=== PATIENT | male | born 1955 | race Caucasian/White ===

== ENCOUNTER 2018-05-10 10:41 | Emergency (ER) | payer OTHER, SELFPAY ==
[2018-05-10 10:46] VITALS: BP 144/107; PULSE 83; RESP 14; TEMP 36.2; O2SAT 95; BMI 38.4
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
== END 2018-05-10 13:35 | disposition home or self-care (01) ==
PROVIDERS: Emergency Provider Emergency Medicine
DX: S16.1XXA Strain of muscle, fascia and tendon at neck level, initial encounter (principal); S39.012A Strain of muscle, fascia and tendon of lower back, initial encounter; V43.52XA Car driver injured in collision with other type car in traffic accident, initial encounter
CPT/HCPCS: 72100; 72125; 99283; 99284

== ENCOUNTER → 2018-09-10 09:42 | Outpatient (CLI) | payer OTHER, SELFPAY ==
--- NOTE | 2018-09-10 | DI.RAD.S_ITS ---
This blank DEXA report has been sent in error by the PACS system. The correct and complete report will be forthcoming in 1-2 days. Thank you for your patience and understanding. Dictated by: Jose Canela M.D. on 09/10/2018 at 12:17 Approved by: Jose Canela M.D. on 09/10/2018 at 12:17
== END ==
PROVIDERS: Visit Provider Internal Medicine
DX: M85.80 Other specified disorders of bone density and structure, unspecified site (principal); E11.9 Type 2 diabetes mellitus without complications; Z79.899 Other long term (current) drug therapy; Z87.891 Personal history of nicotine dependence
CPT/HCPCS: 77080

== ENCOUNTER 2019-01-20 11:35 | Emergency (ER) | payer OTHER, SELFPAY ==
[2019-01-20 11:35] VITALS: BP 131/103; PULSE 86; RESP 19; TEMP 36.8; O2SAT 96; BMI 36.9
--- NOTE | 2019-01-20 11:52 | ED_ITS ---
HPI - Back Pain/Injury <GRECIA Mcmanus - Last Filed: 01/20/19 19:37> General Chief Complaint: Back Pain/Injury Stated Complaint: Flank Pain Time Seen by Provider: 01/20/19 11:35 Source: patient Mode of arrival: ambulatory Limitations: no limitations History of Present Illness HPI Narrative: The patient is a 63-year-old male current marijuana smoker with history of complex regional pain syndrome who presents with a chief complaint of sudden onset of left flank pain. He states the pain was so bad he got nauseous and sweaty. He denies any previous history of kidney stones. He denies any fever, chest pain shortness of breath or abdominal pain. States the pain is nonradiating in his left flank. He denies any previous dysuria urgency or frequency. He states he last urinated approximately an hour and half prior to calling EMS. He has not taken anything for the pain and did not receive anything EN route. Related Data Home Medications Medication Instructions Recorded Confirmed tamsulosin [Flomax] 0.4 mg PO QPM #0 02/07/12 01/20/19 omeprazole 10 mg PO DAILY 05/10/18 01/20/19 Stool Softener 1 cap PO QPM 01/20/19 01/20/19 Vitamin C 1 tab PO DAILY 01/20/19 01/20/19 Vitamin D3 1 cap PO DAILY 01/20/19 01/20/19 krill oil 1 cap PO DAILY 01/20/19 01/20/19 Previous Rx's Medication Instructions Recorded hydrocodone-acetaminophen [[place]] 1 tab PO Q4-6H PRN #10 tab 01/20/19 ketorolac 10 mg PO TID PRN #20 tab 01/20/19 ondansetron 4 mg PO Q6H PRN #20 tab 01/20/19 tamsulosin [Flomax] 0.4 mg PO DAILY #7 cap 01/20/19 Allergies Allergy/AdvReac Type Severity Reaction Status Date / Time gabapentin [GABAPENTIN] Allergy Unknown Verified 05/10/18 10:50 pregabalin [From LYRICA] Allergy Unknown Verified 05/10/18 10:50 tramadol [TRAMADOL] Allergy Unknown Verified 05/10/18 10:50 Review of Systems <GRECIA Mcmanus - Last Filed: 01/20/19 19:37> Review of Systems GENERAL: Denies chills, fatigue, malaise, fever, sweats. HEENT: Denies sinus pain, ear pain, sore throat, difficulty swallowing, dizziness. RESPIRATORY: Denies dyspnea, cough, wheezing, hemoptysis, sputum. CARDIOVASCULAR: Denies chest pain, palpitations, orthopnea, edema, GASTROINTESTINAL: Denies nausea, vomiting, abdominal pain, diarrhea, constipation, melena. : See HPI MUSCULOSKELETAL: denies weakness, joint pain, or bony pain SKIN: Denies rash, skin lesions, or other NEUROLOGIC: Denies weakness, headache, numbness, change in speech, confusion, se izures, incoordination. PSYCHIATRIC: No concerning psychosocial issues. 12 point review of systems is negative except for those stated above PFSH <GRECIA Mcmanus - Last Filed: 01/20/19 19:37> Social History Smoking Status: Current every day smoker Exam <GRECIA Mcmanus - Last Filed: 01/20/19 19:37> Narrative Exam Narrative: GENERAL: Obese male, appears uncomfortable HEAD: Atraumatic. Normocephalic. No temporal or scalp tenderness. EYES: Pupils equal round and reactive. Extraocular motions intact. No scleral icterus. No injection or drainage. ENT: Nose without bleeding, purulent drainage or septal hematoma. Throat without erythema, tonsillar hypertrophy or exudate. Uvula midline. Airway patent. NECK: Trachea midline. No JVD or lymphadenopathy. Supple, nontender, no meningeal signs. CARDIOVASCULAR: Regular rate and rhythm RESPIRATORY: Coarse bilaterally to auscultation. Breath sounds equal bilaterally. No wheezes, rales, or rhonchi. GASTROINTESTINAL: Abdomen soft, non-tender, nondistended. No hepato- splenomegaly, or palpable masses. No guarding. Active bowel sounds all 4 quadrants. EXTREMITIES: No clubbing, cyanosis, or edema. No joint tenderness, effusion, or edema noted. BACK: Nontender without deformity or crepitance. CVA tenderness on left side. No CVA tenderness right-sided. NEURO: AOx3. SKIN: No rash or erythema. Initial Vital Signs Initial Vital Signs: Vital Signs Temperature 98.2 F 01/20/19 11:35 Pulse Rate 86 01/20/19 11:35 Respiratory Rate 19 01/20/19 11:35 Blood Pressure 131/103 H 01/20/19 11:35 Pulse Oximetry 96 01/20/19 11:35 <Rich James DO - Last Filed: 01/21/19 07:30> Initial Vital Signs Initial Vital Signs: Vital Signs Temperature 98.2 F 01/20/19 11:35 Pulse Rate 86 01/20/19 11:35 Respiratory Rate 19 01/20/19 11:35 Blood Pressure 131/103 H 01/20/19 11:35 Pulse Oximetry 96 01/20/19 11:35 Course <SHENA Mcmanus-BC - Last Filed: 01/20/19 19:37> Orders Ordered: Discontinued Medications Hydrocodone Bitart/Acetaminophen ([place] 5/325) 2 tab PO NOW ONE Stop: 01/20/19 16:19 Last Admin: 01/20/19 16:28 Dose: 2 tab Hydromorphone HCl (Dilaudid) 0.5 mg IV NOW ONE Stop: 01/20/19 13:22 Last Admin: 01/20/19 13:24 Dose: 0.5 mg Hydromorphone HCl (Dilaudid) 1 mg IV NOW ONE Stop: 01/20/19 13:50 Last Admin: 01/20/19 13:53 Dose: 1 mg Hydromorphone HCl (Dilaudid) 1 mg IV NOW ONE Stop: 01/20/19 15:24 Last Admin: 01/20/19 15:26 Dose: 1 mg Hydromorphone HCl (Dilaudid) 1 mg IV NOW ONE Stop: 01/20/19 16:47 Last Admin: 01/20/19 16:48 Dose: 1 mg Sodium Chloride (Normal Saline 0.9%) 1,000 mls @ 1,000 mls/hr IV BOLUS ONE Stop: 01/20/19 12:36 Last Infusion: 01/20/19 15:00 Dose: 0 mls/hr Admin: 01/20/19 12:05 Dose: 1,000 mls/hr Sodium Chloride (Normal Saline 0.9%) 1,000 mls @ 1,000 mls/hr IV BOLUS ONE Stop: 01/20/19 14:57 Last Infusion: 01/20/19 16:53 Dose: 0 mls/hr Admin: 01/20/19 15:00 Dose: 1,000 mls/hr Ketorolac Tromethamine (Toradol) 30 mg IV NOW ONE Stop: 01/20/19 11:38 Last Admin: 01/20/19 12:05 Dose: 30 mg Morphine Sulfate (Morphine) 4 mg IV NOW ONE Stop: 01/20/19 12:03 Last Admin: 01/20/19 12:09 Dose: 4 mg Morphine Sulfate (Morphine) 4 mg IV NOW ONE Stop: 01/20/19 12:53 Last Admin: 01/20/19 13:05 Dose: 4 mg Ondansetron HCl (Zofran) 4 mg IV NOW ONE Stop: 01/20/19 11:38 Last Admin: 01/20/19 12:05 Dose: 4 mg Ondansetron HCl (Zofran) 4 mg IV NOW ONE Stop: 01/20/19 13:28 Last Admin: 01/20/19 13:32 Dose: 4 mg Vital Signs - 8 hr 01/20/19 11:35 01/20/19 12:37 01/20/19 13:29 Temperature 98.2 F Pulse Rate 86 76 57 L Respiratory Rate 19 16 22 Blood Pressure 131/103 H Blood Pressure [Left Arm] 112/67 119/78 Pulse Oximetry 96 96 98 01/20/19 15:00 01/20/19 17:04 Temperature Pulse Rate 77 95 H Respiratory Rate 19 Blood Pressure 142/100 H Blood Pressure [Left Arm] 130/76 Pulse Oximetry 96 98 <Rich James DO - Last Filed: 01/21/19 07:30> Orders Ordered: Discontinued Medications Hydrocodone Bitart/Acetaminophen ([place] 5/325) 2 tab PO NOW ONE Stop: 01/20/19 16:19 Last Admin: 01/20/19 16:28 Dose: 2 tab Hydromorphone HCl (Dilaudid) 0.5 mg IV NOW ONE Stop: 01/20/19 13:22 Last Admin: 01/20/19 13:24 Dose: 0.5 mg Hydromorphone HCl (Dilaudid) 1 mg IV NOW ONE Stop: 01/20/19 13:50 Last Admin: 01/20/19 13:53 Dose: 1 mg Hydromorphone HCl (Dilaudid) 1 mg IV NOW ONE Stop: 01/20/19 15:24 Last Admin: 01/20/19 15:26 Dose: 1 mg Hydromorphone HCl (Dilaudid) 1 mg IV NOW ONE Stop: 01/20/19 16:47 Last Admin: 01/20/19 16:48 Dose: 1 mg Sodium Chloride (Normal Saline 0.9%) 1,000 mls @ 1,000 mls/hr IV BOLUS ONE Stop: 01/20/19 12:36 Last Infusion: 01/20/19 15:00 Dose: 0 mls/hr Admin: 01/20/19 12:05 Dose: 1,000 mls/hr Sodium Chloride (Normal Saline 0.9%) 1,000 mls @ 1,000 mls/hr IV BOLUS ONE Stop: 01/20/19 14:57 Last Infusion: 01/20/19 16:53 Dose: 0 mls/hr Admin: 01/20/19 15:00 Dose: 1,000 mls/hr Ketorolac Tromethamine (Toradol) 30 mg IV NOW ONE Stop: 01/20/19 11:38 Last Admin: 01/20/19 12:05 Dose: 30 mg Morphine Sulfate (Morphine) 4 mg IV NOW ONE Stop: 01/20/19 12:03 Last Admin: 01/20/19 12:09 Dose: 4 mg Morphine Sulfate (Morphine) 4 mg IV NOW ONE Stop: 01/20/19 12:53 Last Admin: 01/20/19 13:05 Dose: 4 mg Ondansetron HCl (Zofran) 4 mg IV NOW ONE Stop: 01/20/19 11:38 Last Admin: 01/20/19 12:05 Dose: 4 mg Ondansetron HCl (Zofran) 4 mg IV NOW ONE Stop: 01/20/19 13:28 Last Admin: 01/20/19 13:32 Dose: 4 mg Vital Signs - 8 hr 01/20/19 11:35 01/20/19 12:37 01/20/19 13:29 Temperature 98.2 F Pulse Rate 86 76 57 L Respiratory Rate 19 16 22 Blood Pressure 131/103 H Blood Pressure [Left Arm] 112/67 119/78 Pulse Oximetry 96 96 98 01/20/19 15:00 01/20/19 17:04 Temperature Pulse Rate 77 95 H Respiratory Rate 19 Blood Pressure 142/100 H Blood Pressure [Left Arm] 130/76 Pulse Oximetry 96 98 MDM - Back Pain/Injury <Bel Mcwilliams, SHOP ASSISTANT-BC - Last Filed: 01/20/19 19:37> Lab Data Result diagrams: 01/20/19 11:52 01/20/19 11:52 Lab Results 01/20/19 01/20/19 01/20/19 Range/Units 11:52 11:52 15:49 WBC 8.3 (4.5-11.0) X10^3/uL RBC 4.62 (4.5-5.9) X10^6/uL Hgb 13.2 L (13.5-17.5) g/dL Hct 40.2 L (41-53) % MCV 87.0 (80-100) fL MCH 28.5 (26-34) PG MCHC 32.8 (30-36) % RDW 14.0 (11.6-14.8) % Plt Count 333 (150-400) X10^3/uL Neut % (Auto) 54.0 (50-75) % Lymph % (Auto) 35.1 (25-40) % [place] % (Auto) 9.2 (3-14) % Eos % (Auto) 1.3 L (2-4) % Baso % (Auto) 0.4 (0-2) % Neut # (Auto) 4500 (7202-8982) /uL Lymph # (Auto) 2900 (9296-8737) /uL [place] # (Auto) 800 (0-900) /uL Eos # (Auto) 100 (0-450) /uL Baso # (Auto) 0 (0-100) /uL Sodium 140 (137-145) mmol/L Potassium 4.4 (3.4-5.1) mmol/L Chloride 99 (98-107) mmol/L Carbon Dioxide 31 (22-32) mmol/L BUN 19 (9-20) mg/dL Creatinine 0.80 (0.66-1.25) mg/dL Estimated GFR > 60.0 (>60) mL/min BUN/Creatinine Ratio 23.8 H (6-22) Glucose 143 H (80-110) mg/dL Calcium 9.0 (8.4-10.2) mg/dL Total Bilirubin 0.3 (0.2-1.3) mg/dL AST 21 (17-59) IU/L ALT 30 (21-72) IU/L Alkaline Phosphatase 60 (38-126) U/L Total Protein 7.5 (6.3-8.2) g/dL Albumin 4.1 (3.5-5.0) g/dL Globulin 3.4 (1.7-4.1) g/dL Albumin/Globulin Ratio 1.2 (1.0-2.8) Amylase 86 (30-110) U/L Lipase 67 (23-300) U/L Urine RBC 30-100/hpf H (0-5/HPF) Urine WBC 0-1/hpf (0-5/HPF) Ur Squamous Epith Cells 1-5 /hpf (0-5/HPF) Amorphous Sediment 2+ Urine Bacteria None seen (None) Urine Mucus 3+ H (Negative) Ur Culture Indicated? Cult not indicated Urine Dip Bedside Urine Glucose Negative Bedside Urine Bilirubin - Negative Bedside Urine Ketone +/- 5 Urine Specific [place] 1.030 Bedside Urine Occult Blood +/- Bedside Urine pH 5.0 Bedside Urine Protein +/- 15 Bedside Urine Urobilinogen +/- 1mg Bedside Urine Nitrite - Negative Bedside Urine Leukocytes - Negative Esterase Imaging Data CT scan - abdomen: Radiologist's impression: [place] [address] CT Scan Report Signed Patient: Buck Bernardo RMJuani#: [id number] : 4Acct:[id number] Age/Sex: 63 / MDate of Service: 01/20/19 Loc: ED Accession Number: [id number] Procedure: CT kidney ureter bladder (KUB) Ordering Provider: Bel Mcwilliams [facility] PROCEDURE: CT KIDNEY URETER BLADDER (KUB) INDICATIONS: flank pain TECHNIQUE: Noncontrast 5 mm thick sections acquired from the diaphragms to the symphysis. 5 mm thick coronal and sagittal reformats were then performed. For radiation dose reduction, the following was used: automated exposure control, adjustment of mA and/or kV according to patient size. COMPARISON: None. FINDINGS: Image quality: Diagnostic. Lung bases: Lung bases are clear. A small posteromedial right diaphragmatic hernia is present, containing fat. Heart size is normal. Urinary system: Both kidneys are normal in size. No kidney stones. Small (1-3 mm) right renal calculi are evident. There is a 2 mm distal left ureteral calculus identified at the vesicoureteral junction with minimal prominence of the left ureter and left collecting system. No right-sided hydronephrosis, hydroureter, or ureteral calculi are present. Bladder wall thickness is normal; no calcified bladder stones. Other solid organs: The liver appears to be borderline prominent in size. No definite liver lesions are evident. The liver may be hypodense. Calcified granulomas are present within the spleen. The adrenals are within normal limits. The pancreas is unremarkable. Peritoneum and bowel: There is a small hiatal hernia. Otherwise, the stomach is unremarkable. The small bowel loops are not dilated. Extensive distal colonic diverticulosis is identified without surrounding inflammation to suggest acute diverticulitis. The appendix is well-visualized and normal. No free fluid, loculated fluid collection or free air is evident. Nodes and vessels: No retroperitoneal or mesenteric adenopathy by size cri teria. Aorta and inferior vena cava are normal in caliber. There is aortic and iliac artery atherosclerosis. Abdominal wall: There is a moderate-sized periumbilical fat containing hernia. Pelvis: No free pelvic fluid. No loculated fluid collections are present. Small bilateral fat containing inguinal hernias are noted. Bones: No suspicious bony lesions. No vertebral body compression fractures. IMPRESSION: 1. Small (2 mm) distal left ureteral calculus at the vesicoureteral junction with minimal associated left-sided hydronephrosis and hydroureter. 2. Nonobstructing right renal calculi. No hydronephrosis. 3. Probable hepatic steatosis. 4. Colonic diverticulosis without diverticulitis. 5. Small hiatal hernia. 6. Fat-containing periumbilical and inguinal hernias. Dictated by: Jem Dumont M.D. on 01/20/2019 at 11:38 Approved by: Jem Dumont M.D. on 01/20/2019 at 11:44 MDM Narrative Medical decision making narrative: The patient is a 63 year male who presents with a chief complaint of acute onset of flank pain. He was clinically of worrisome for a kidney stone, so I obtained a CT KUB which came back with a 2 mm distal left ureteral stone. His kidney function is within normal limits. He took a while to give a urine sample, and eventually I discussed a straight catheter is needed. He then urinated. His urine has no signs of infection. Of note the patient's pain was difficult to control in the emergency department but pain control is achieved. I discharged him with [place], Zofran, Toradol as well as single week of Flomax. I discussed at length monitoring for signs and symptoms of infection such as fever, dysuria etc. I discussed at length straining his urine was given urine strainers I discussed follow-up with his PCP. I discussed coming back to the ER for any acute concerns such as inability keep down fluids. Discussed not taking Aleve or ibuprofen with Toradol. Patient has no questions or concerns upon discharge. States understanding of follow-up as well as return precautions. <Rich James, DO - Last Filed: 01/21/19 07:30> Lab Data Lab Results 01/20/19 01/20/19 01/20/19 Range/Units 11:52 11:52 15:49 WBC 8.3 (4.5-11.0) X10^3/uL RBC 4.62 (4.5-5.9) X10^6/uL Hgb 13.2 L (13.5-17.5) g/dL Hct 40.2 L (41-53) % MCV 87.0 (80-100) fL MCH 28.5 (26-34) PG MCHC 32.8 (30-36) % RDW 14.0 (11.6-14.8) % Plt Count 333 (150-400) X10^3/uL Neut % (Auto) 54.0 (50-75) % Lymph % (Auto) 35.1 (25-40) % [place] % (Auto) 9.2 (3-14) % Eos % (Auto) 1.3 L (2-4) % Baso % (Auto) 0.4 (0-2) % Neut # (Auto) 4500 (2504-9122) /uL Lymph # (Auto) 2900 (4646-7884) /uL [place] # (Auto) 800 (0-900) /uL Eos # (Auto) 100 (0-450) /uL Baso # (Auto) 0 (0-100) /uL Sodium 140 (137-145) mmol/L Potassium 4.4 (3.4-5.1) mmol/L Chloride 99 (98-107) mmol/L Carbon Dioxide 31 (22-32) mmol/L BUN 19 (9-20) mg/dL Creatinine 0.80 (0.66-1.25) mg/dL Estimated GFR > 60.0 (>60) mL/min BUN/Creatinine Ratio 23.8 H (6-22) Glucose 143 H (80-110) mg/dL Calcium 9.0 (8.4-10.2) mg/dL Total Bilirubin 0.3 (0.2-1.3) mg/dL AST 21 (17-59) IU/L ALT 30 (21-72) IU/L Alkaline Phosphatase 60 (38-126) U/L Total Protein 7.5 (6.3-8.2) g/dL Albumin 4.1 (3.5-5.0) g/dL Globulin 3.4 (1.7-4.1) g/dL Albumin/Globulin Ratio 1.2 (1.0-2.8) Amylase 86 (30-110) U/L Lipase 67 (23-300) U/L Urine RBC 30-100/hpf H (0-5/HPF) Urine WBC 0-1/hpf (0-5/HPF) Ur Squamous Epith Cells 1-5 /hpf (0-5/HPF) Amorphous Sediment 2+ Urine Bacteria None seen (None) Urine Mucus 3+ H (Negative) Ur Culture Indicated? Cult not indicated Urine Dip Bedside Urine Glucose Negative Bedside Urine Bilirubin - Negative Bedside Urine Ketone +/- 5 Urine Specific [place] 1.030 Bedside Urine Occult Blood +/- Bedside Urine pH 5.0 Bedside Urine Protein +/- 15 Bedside Urine Urobilinogen +/- 1mg Bedside Urine Nitrite - Negative Bedside Urine Leukocytes - Negative Esterase Discharge Plan Departure Patient Disposition: Home Clinical Impression: Calculus, ureteral Discharge Date/Time: 01/20/19 17:06 Interventions: ED Discharge Assessment Last Done: 01/20/19 17:04 Instructions: Kidney Stones (Alternative Therapy), Kidney Stones -- Adult, DI for Kidney Stones Activity Restrictions/Additional Instructions: Your CT today shows a kidney stone in your left ureter. Fortunately your kidney function is good and there is no signs of infection in your urine. I have given you prescriptions for nausea medication pain medications and Flomax. Be aware that the hydrocodone can be constipating and sedating. Do not take ibuprofen Aleve or any other NSAIDs along with the Toradol. Please follow up with primary care provider. Please strain your urine. Please push fluids. Please come back to the emergency department for any acute concerns such as inability keep down fluids. Prescriptions: New hydrocodone-acetaminophen [[place]] 5-325 mg tablet 1 tab PO Q4-6H PRN (Reason: pain) Qty: 10 RF: 0 ketorolac 10 mg tablet 10 mg PO TID PRN (Reason: pain) Qty: 20 RF: 0 tamsulosin [Flomax] 0.4 mg capsule 0.4 mg PO DAILY Qty: 7 RF: 0 ondansetron 4 mg tablet,disintegrating 4 mg PO Q6H PRN (Reason: nausea and vomiting) Qty: 20 RF: 0 No Action tamsulosin [Flomax] 0.4 MG capsule,extended release 24hr 0.4 mg PO QPM Qty: 0 RF: 0 omeprazole 10 mg Capsule,Delayed Release(Dr/Ec) 10 mg PO DAILY RF: 0 Stool Softener 1 cap PO QPM RF: 0 Vitamin C 1 tab PO DAILY RF: 0 Vitamin D3 1 cap PO DAILY RF: 0 krill oil 1 cap PO DAILY RF: 0 <Rich James, - Last Filed: 01/21/19 07:30> [facility] ED Attending Migel Attestation: I was available for consultation during this patient's emergency department encounter
--- NOTE | 2019-01-20 11:55 | DI.CT.S_ITS ---
PROCEDURE: CT KIDNEY URETER BLADDER (KUB) INDICATIONS: flank pain TECHNIQUE: Noncontrast 5 mm thick sections acquired from the diaphragms to the symphysis. 5 mm thick coronal and sagittal reformats were then performed. For radiation dose reduction, the following was used: automated exposure control, adjustment of mA and/or kV according to patient size. COMPARISON: None. FINDINGS: Image quality: Diagnostic. Lung bases: Lung bases are clear. A small posteromedial right diaphragmatic hernia is present, containing fat. Heart size is normal. Urinary system: Both kidneys are normal in size. No kidney stones. Small (1-3 mm) right renal calculi are evident. There is a 2 mm distal left ureteral calculus identified at the vesicoureteral junction with minimal prominence of the left ureter and left collecting system. No right-sided hydronephrosis, hydroureter, or ureteral calculi are present. Bladder wall thickness is normal; no calcified bladder stones. Other solid organs: The liver appears to be borderline prominent in size. No definite liver lesions are evident. The liver may be hypodense. Calcified granulomas are present within the spleen. The adrenals are within normal limits. The pancreas is unremarkable. Peritoneum and bowel: There is a small hiatal hernia. Otherwise, the stomach is unremarkable. The small bowel loops are not dilated. Extensive distal colonic diverticulosis is identified without surrounding inflammation to suggest acute diverticulitis. The appendix is well-visualized and normal. No free fluid, loculated fluid collection or free air is evident. Nodes and vessels: No retroperitoneal or mesenteric adenopathy by size criteria. Aorta and inferior vena cava are normal in caliber. There is aortic and iliac artery atherosclerosis. Abdominal wall: There is a moderate-sized periumbilical fat containing hernia. Pelvis: No free pelvic fluid. No loculated fluid collections are present. Small bilateral fat containing inguinal hernias are noted. Bones: No suspicious bony lesions. No vertebral body compression fractures. IMPRESSION: 1. Small (2 mm) distal left ureteral calculus at the vesicoureteral junction with minimal associated left-sided hydronephrosis and hydroureter. 2. Nonobstructing right renal calculi. No hydronephrosis. 3. Probable hepatic steatosis. 4. Colonic diverticulosis without diverticulitis. 5. Small hiatal hernia. 6. Fat-containing periumbilical and inguinal hernias. Dictated by: Jem Dumont M.D. on 01/20/2019 at 11:38 Approved by: Jem Dumont M.D. on 01/20/2019 at 11:44
[2019-01-20 12:00] LABS: Add Manual Diff / Slide Review NO; Basophils Absolute Auto 0 /uL (0-100); Basophils Percent Auto 0.4 % (0-2); Eosinophils Absolute Auto 100 /uL (0-450); Eosinophils Percent Auto 1.3 % (2-4); Hematocrit 40.2 % (41-53); Hemoglobin 13.2 g/dL (13.5-17.5); Lymphocytes Absolute Auto 2900 /uL (1100-4500); Lymphocytes Percent Auto 35.1 % (25-40); Mean Corpuscular HGB Conc 32.8 % (30-36); Mean Corpuscular Hemoglobin 28.5 PG (26-34); Monocytes Absolute Auto 800 /uL (0-900); Monocytes Percent Auto 9.2 % (3-14); Neutrophils Absolute Auto 4500 /uL (1500-7000); Platelet Count 333 X10^3/uL (150-400); Red Blood Cell Count 4.62 X10^6/uL (4.5-5.9); White Blood Cell Count 8.3 X10^3/uL (4.5-11.0)
[2019-01-20] MEDS: SODIUM CHLORIDE 0.9% 1,000 ML 1000 ML IV ×2 (12:05→15:00)
[2019-01-20] MEDS: ONDANSETRON 4 MG/2 ML INJ IV ×2 (12:05→13:32)
[2019-01-20] MEDS: KETOROLAC 60 MG/2 ML VIAL 30 MG IV (12:05)
[2019-01-20] MEDS: MORPHINE 4 MG/ML INJ IV ×2 (12:09→13:05)
[2019-01-20 12:10] LABS: Alanine Aminotransferase 30 IU/L (21-72); Albumin 4.1 g/dL (3.5-5.0); Albumin Globulin Ratio 1.2 (1.0-2.8); Alkaline Phosphatase 60 U/L (38-126); Amylase 86 U/L (30-110); Aspartate Aminotransferase 21 IU/L (17-59); BUN Creatinine Ratio 23.8 (6-22); Bilirubin Total 0.3 mg/dL (0.2-1.3); Blood Urea Nitrogen 19 mg/dL (9-20); Carbon Dioxide 31 mmol/L (22-32); Chloride 99 mmol/L (98-107); Estimated Glomerular Filt Rate > 60.0 mL/min (>60); Globulin 3.4 g/dL (1.7-4.1); Glucose 143 mg/dL (80-110); HEMOLYSIS < 15 (0-50); Lipase 67 U/L (23-300); Potassium 4.4 mmol/L (3.4-5.1); Sodium 140 mmol/L (137-145); Total Protein 7.5 g/dL (6.3-8.2)
[2019-01-20 12:37] VITALS: BP 112/67; PULSE 76; RESP 16; O2SAT 96
[2019-01-20] MEDS: HYDROMORPHONE 0.5 MG INJ IV (13:24)
[2019-01-20 13:29] VITALS: BP 119/78; PULSE 57; RESP 22; O2SAT 98
[2019-01-20] MEDS: HYDROMORPHONE 1 MG INJ IV ×3 (13:53→16:48)
[2019-01-20 15:00] VITALS: BP 130/76; PULSE 77; O2SAT 96
[2019-01-20 16:08] LABS: Bacteria Urine None Seen
[2019-01-20 16:18] LABS: Amorphous Sediment Urine 2+; Culture Indicated Urine Cult Not Indicated; Mucus Urine 3+ (Negative); RBC Urine 30-100/HPF (0-5/HPF); Squamous Epithelial Cell Urine 1-5 /HPF (0-5/HPF); WBC Urine 0-1/HPF (0-5/HPF)
[2019-01-20] MEDS: HYDROCODONE/ACET 5/325 TABLET 2 TAB PO (16:28)
[2019-01-20 17:04] VITALS: BP 142/100; PULSE 95; RESP 19; O2SAT 98
== END 2019-01-20 17:06 | disposition home or self-care (01) ==
PROVIDERS: Emergency Provider Nurse Practitioner Family
DX: N20.2 Calculus of kidney with calculus of ureter (principal)
CPT/HCPCS: 36415; 74176; 80053; 81003; 81015; 82150; 83690; 85025; 96361; 96374; 96375; 96376; 99283; 99284; J1170; J1885; J2270; J2405

== ENCOUNTER 2020-11-20 03:52 | Emergency (ER) | payer OTHER, SELFPAY ==
[2020-11-20 04:01] VITALS: BP 154/89; PULSE 111; RESP 20; TEMP 36.6; O2SAT 94; BMI 38.4
--- NOTE | 2020-11-20 04:04 | ED_ITS ---
HPI - General Adult General Chief complaint: Skin/Abscess/Foreign Body Stated complaint: thinks allergic reaction to shingles shot Time Seen by Provider: 11/20/20 03:53 Source: patient Mode of arrival: Ambulatory Limitations: no limitations History of Present Illness HPI narrative: Patient is a 65-year-old male here for evaluation of what he thinks is an allergic reaction to his shingles shot. Approximately 3 days ago patient received a shot in his left arm. The day after the shot he had fevers and felt very poorly. He was in bed most of the day. Yesterday started to feel better. When he took a shower yesterday he noticed redness in his left arm. Related Data Home Medications Medication Instructions Recorded Confirmed tamsulosin [Flomax] 0.4 mg PO QPM #0 02/07/12 01/20/19 omeprazole 10 mg PO DAILY 05/10/18 01/20/19 Stool Softener 1 cap PO QPM 01/20/19 01/20/19 Vitamin C 1 tab PO DAILY 01/20/19 01/20/19 Vitamin D3 1 cap PO DAILY 01/20/19 01/20/19 krill oil 1 cap PO DAILY 01/20/19 01/20/19 Previous Rx's Medication Instructions Recorded hydrocodone-acetaminophen [[place]] 1 tab PO Q4-6H PRN #10 tab 01/20/19 ketorolac 10 mg PO TID PRN #20 tab 01/20/19 ondansetron 4 mg PO Q6H PRN #20 tab 01/20/19 tamsulosin [Flomax] 0.4 mg PO DAILY #7 cap 01/20/19 cephalexin 500 mg PO QID 7 Days #28 cap 11/20/20 Allergies Allergy/AdvReac Type Severity Reaction Status Date / Time gabapentin [GABAPENTIN] Allergy Unknown Verified 05/10/18 10:50 pregabalin [From [facility]] Allergy Unknown Verified 05/10/18 10:50 tramadol [TRAMADOL] Allergy Unknown Verified 05/10/18 10:50 Review of Systems Constitutional Constitutional: Reports fatigue and Reports fever(s) Cardiovascular Cardiovascular: Denies chest pain, Denies rapid heart rate and Denies dyspnea Respiratory Respiratory: Denies dyspnea Gastrointestinal Gastrointestinal: Denies abdominal pain Musculoskeletal Musculoskeletal: Denies tingling Integumentary/Breasts Comments: Redness left arm Neurologic Neurologic: Denies tingling Psychiatric Psychiatric: Reports system reviewed and no additional complaints, except as documented Endocrine Endocrine: Reports fatigue Hematologic/Lymphatic On Anticoagulants: No Allergic/Immunologic Allergic/Immunologic: Reports system reviewed and no additional complaints, except as documented Patient History Medical History (Updated 11/20/20 @ 04:18 by Rich James DO) Chronic pain syndrome Social History Smoking Status: Current every day smoker Smoking Status: Current every day smoker alcohol intake frequency: 0-2 drinks per day Substance Use Type: marijuana Exam Initial Vital Signs Initial Vital Signs: Vital Signs Temperature 97.9 F 11/20/20 04:01 Pulse Rate 111 H 11/20/20 04:01 Respiratory Rate 20 11/20/20 04:01 Blood Pressure 154/89 H 11/20/20 04:01 Pulse Oximetry 94 11/20/20 04:01 Const General: cooperative and comfortable Limitations: mental status not altered HENMT Head: normal to inspection and normocephalic Resp Effort & Inspection: normal respiratory effort Auscultation: clear to auscultation bilaterally Cardio Rate: tachycardic Rhythm: regular rhythm Skin Other: Patient has an irregular area of redness and warmth in his left upper arm over the area where he had shot. There is no crepitus. Neuro General: patient alert and patient awake Cognition: normal cognition Speech: speech normal Extrem General: normal to inspection and capillary refill normal Psych Appearance: grossly normal and well kempt Course Orders Ordered: ED Orders 11/20/20 03:59 EKG-12 Lead Stat Discontinued Medications Cephalexin HCl (Cephalexin 250 Mg Capsule) 500 mg PO NOW ONE Stop: 11/20/20 04:05 Last Admin: 11/20/20 04:08 Dose: 500 mg Documented by: Vital Signs Vital signs: Vital Signs - 8 hr 11/20/20 04:01 Temperature 97.9 F Pulse Rate 111 H Respiratory Rate 20 Blood Pressure 154/89 H Pulse Oximetry 94 Medical Decision Making ECG Data Attestation: I personally reviewed and interpreted this ECG as follows: Prior ECG tracings: not available for review Interpretation: Sinus tachycardia Ventricular rate 126 Normal axis Normal QRS Normal QTC No ST T wave changes MDM Narrative Medical decision making narrative: Patient does have a redness in his left upper arm. Since he did have a shot in this area I do have some concern about a cellulitis. This also could be just a local reaction but given the rest of his presenting symptoms I do feel starting him on antibiotics would be warranted. Patient is tachycardic. Afebrile. Otherwise he is very well appearing. Will start the patient on antibiotics. He is given a 1st dose here in the emergency department a prescription was sent to the pharmacy of his choice. He was given strict return precautions. Expressed understanding and agreement. Discharge Plan Departure Patient Disposition: Home Clinical Impression: Cellulitis, Tachycardia Instructions: DI for Cellulitis -- Adult Activity Restrictions/Additional Instructions: A prescription for antibiotics was transmitted to the pharmacy of your choice. I do recommend that you start taking it as directed. You can take Tylenol/ibupr ofen for any fevers. Return to the emergency department for any new or worsening symptoms. Prescriptions: New cephalexin 500 mg capsule 500 mg PO QID 7 Days Qty: 28 RF: 0 No Action tamsulosin [Flomax] 0.4 MG capsule,extended release 24hr 0.4 mg PO QPM Qty: 0 RF: 0 omeprazole 10 mg Capsule,Delayed Release(Dr/Ec) 10 mg PO DAILY RF: 0 Stool Softener 1 cap PO QPM RF: 0 Vitamin C 1 tab PO DAILY RF: 0 Vitamin D3 1 cap PO DAILY RF: 0 krill oil 1 cap PO DAILY RF: 0 hydrocodone-acetaminophen [[place]] 5-325 mg tablet 1 tab PO Q4-6H PRN (Reason: pain) Qty: 10 RF: 0 ketorolac 10 mg tablet 10 mg PO TID PRN (Reason: pain) Qty: 20 RF: 0 tamsulosin [Flomax] 0.4 mg capsule 0.4 mg PO DAILY Qty: 7 RF: 0 ondansetron 4 mg tablet,disintegrating 4 mg PO Q6H PRN (Reason: nausea and vomiting) Qty: 20 RF: 0
[2020-11-20] MEDS: cephALEXin 250 MG CAPSULE 500 MG PO (04:08)
== END 2020-11-20 04:30 | disposition home or self-care (01) ==
PROVIDERS: Emergency Provider Emergency Medicine
DX: L03.114 Cellulitis of left upper limb (principal); R00.0 Tachycardia, unspecified; T50.Z95A Adverse effect of other vaccines and biological substances, initial encounter; R53.83 Other fatigue; R50.9 Fever, unspecified
CPT/HCPCS: 93005; 93010; 99283

== ENCOUNTER → 2022-08-07 14:17 | Outpatient (CLI) | payer OTHER, SELFPAY ==
--- NOTE | 2022-08-07 | DI.CT.S_ITS ---
PROCEDURE: CT HEAD/BRAIN WO CON INDICATIONS: Headache, unspecified TECHNIQUE: Noncontrast 4.5 mm thick angled axial sections acquired from the foramen magnum to the vertex, with coronal and sagittal reformats. For radiation dose reduction, the following was used: automated exposure control, adjustment of mA and/or kV according to patient size. COMPARISON: None. FINDINGS: Image quality: Excellent. CSF spaces: Basal cisterns are patent. No extra-axial fluid collections. Ventricles are normal in size and shape. Brain: No midline shift. No intracranial masses or hemorrhage. James-white matter interface is normal. Skull and face: Calvarium and visualized facial bones are intact, without suspicious lesions. Sinuses: Visualized sinuses and mastoids are clear. IMPRESSION: 1. No acute intracranial process. Dictated by: Johanna Ding M.D. on 08/07/2022 at 16:52 Approved by: Johanna Ding M.D. on 08/07/2022 at 16:52
== END ==
PROVIDERS: PCP Nurse Practitioner Family; Referring Provider Nurse Practitioner Family; Visit Provider Nurse Practitioner Family
DX: R51.9 Headache, unspecified (principal)
CPT/HCPCS: 70450

== ENCOUNTER → 2023-10-07 08:39 | Outpatient (CLI) | payer OTHER, SELFPAY ==
--- NOTE | 2023-10-07 08:40 | DI.US.S_ITS ---
PROCEDURE: US ABD AORTA ANEURYSM SCREEN INDICATIONS: Aneurysm of the descending thoracic aorta TECHNIQUE: Real time scanning was performed of the aorta and iliac arteries, with image documentation. COMPARISON: None. FINDINGS: Aorta: Proximal aortic diameter measures 3.1 cm. Mid-aorta measures 2.7 cm. Distal aortic diameter is 2.3 cm. Iliac arteries: Right common iliac artery measures 1.6 cm. Left common iliac artery measures 2.0 cm. IMPRESSION: Proximal aortic aneurysm measuring 3.1 cm. Three year follow-up is recommended per consensus guidelines. Dictated by: Valentino Moss M.D. on 10/07/2023 at 11:04 Approved by: Valenitno Moss M.D. on 10/07/2023 at 11:05
== END ==
PROVIDERS: PCP Nurse Practitioner Family; Referring Provider Nurse Practitioner Family; Visit Provider Nurse Practitioner Family
DX: I71.23 Aneurysm of the descending thoracic aorta, without rupture (principal)
CPT/HCPCS: 76706

== ENCOUNTER → 2023-10-12 06:47 | Outpatient (CLI) | payer OTHER, SELFPAY ==
--- NOTE | 2023-10-12 06:49 | DI.US.S_ITS ---
PROCEDURE: US CAROTID DOPPLER BI INDICATIONS: SYNCOPE AND COLLAPSE TECHNIQUE: Color and pulse Doppler interrogation was performed of both carotid systems, with image documentation and velocity measurements. COMPARISON: None. FINDINGS: Stenosis calculations are based on SRU (Society of Radi[employer] in Ultras[employer]) criteria. The flow velocities and the arterial waveforms are normal within both carotid arterial systems. No significant atherosclerotic plaque is seen. The estimated degree of internal carotid artery stenosis is less than 50%. Antegrade flow is confirmed within both vertebral arteries. IMPRESSION: Normal. Dictated by: Jose Xiong M.D. on 10/12/2023 at 10:26 Approved by: Jose Xiong M.D. on 10/12/2023 at 10:26
== END ==
LOC: US 06:48
PROVIDERS: PCP Nurse Practitioner Family; Referring Provider Nurse Practitioner Family; Visit Provider Nurse Practitioner Family
DX: R55 Syncope and collapse (principal)
CPT/HCPCS: 93880

== ENCOUNTER → 2023-11-05 06:53 | Outpatient (CLI) | payer OTHER, SELFPAY | LOC: RESP 06:53 | PROVIDERS: PCP Nurse Practitioner Family; Referring Provider Nurse Practitioner Family; Visit Provider Nurse Practitioner Family | DX: J44.9 Chronic obstructive pulmonary disease, unspecified (principal); Z87.891 Personal history of nicotine dependence | CPT/HCPCS: 94060; 94726; 94729 ==

== ENCOUNTER → 2024-09-09 08:39 | Outpatient (CLI) | payer OTHER, SELFPAY ==
--- NOTE | 2024-09-09 08:40 | DI.US.S_ITS ---
PROCEDURE: US EXTREMITY NONVASC UPPER LT INDICATIONS: Pain in lt wrist TECHNIQUE: Real-time scanning was performed of the left wrist , with image documentation. COMPARISON: None. FINDINGS: Sonographic evaluation at the areas of concern does not reveal an underlying mass, fluid collection, or lymph node. IMPRESSION: No sonographic correlate to explain the patient's left wrist pain. Dictated by: Armando Hargrove M.D. on 09/09/2024 at 18:40 Approved by: Armando Hargrove M.D. on 09/09/2024 at 18:42
== END ==
PROVIDERS: PCP Nurse Practitioner Family; Referring Provider Nurse Practitioner Family; Visit Provider Nurse Practitioner Family
DX: M25.532 Pain in left wrist (principal)
CPT/HCPCS: 76882